=== PATIENT | male | born 1990 | race Caucasian/White ===

== ENCOUNTER 2020-02-21 20:40 | Emergency (ER) | payer OTHER, SELFPAY ==
--- NOTE | ~2020-02-21 | CT_ITS ---
EXAMINATION: CT abdomen pelvis wo con DATE: 02/21/2020 21:17 INDICATION: Left flank pain. TECHNIQUE: Computed tomography (CT) of the abdomen and pelvis was performed without intravenous contr ast. Automated exposure control and iterative reconstruction technique were employed. The dose-length product was 296.52 mGy-cm. COMPARISON: None. FINDINGS: The visualized portions of the lung bases are clear without pneumonia or pleural effusion. The heart size is normal. No pericardial effusion. The liver, gallbladder, spleen, pancreas, adrenal glands, and kidneys are normal. There is mild left hydroureter. There is a 2 mm stone at left uretero vesicular junction. There are no dilated loops of bowel. The appendix is normal. There are no patholo gically enlarged lymph nodes. There is no free intraperitoneal fluid. The bones are unremarkable. IMPRESSION: 1. 2 mm stone at left ureterovesicular junction with mild left hydroureter. Reviewed, dictated and finalized at location A.
[2020-02-21 20:42] VITALS: BP 148/87; PULSE 111; RESP 18; TEMP 35.9; O2SAT 100
[2020-02-21 20:53] LABS: Basophils Absolute Auto 0.1 K/mm3 (0.0-0.1); Basophils Percent Auto 0.5 % (0.2-1.2); Eosinophils Absolute Auto 0.1 K/mm3 (0-0.3); Eosinophils Percent Auto 1.1 % (0-4.4); Hematocrit 45.7 % (42.0-52.0); Hemoglobin 15.9 g/dL (14.0-18.0); Immature Granulocyte Absolute 0.02 K/mm3 (0.00-0.031); Immature Granulocyte Percent A 0.2 % (0-0.5); Lymphocytes Absolute Auto 2.17 K/mm3 (0.9-3.2); Lymphocytes Percent Auto 23.2 % (18.3-44.2); Mean Corpuscular HGB Conc 34.8 g/dl (32-36); Mean Corpuscular Hemoglobin 29.2 pg (26-34); Mean Platelet Volume 9.9 fl (7.4-10.4); Monocytes Absolute Auto 0.7 K/mm3 (0.1-0.6); Monocytes Percent Auto 7.9 % (2.6-8.5); Neutrophils Absolute Auto 6.3 K/mm3 (1.3-6.7); Neutrophils Percent Auto 67.1 % (45.5-73.1); Platelet Count Result 326 k/mm3 (150-375); Red Blood Count 5.44 M/mm3 (4.6-6.20); Red Cell Distribution Width 11.9 % (11.5-14.5); White Blood Count 9.4 K/mm3 (4.5-10.0)
--- NOTE | 2020-02-21 21:02 | ED.ABDPAIN ---
HPI - Abdominal Pain General Chief Complaint: Abdominal Pain Stated Complaint: flank pain Time Seen by Provider: 02/21/20 20:55 Source: patient Mode of arrival: ambulatory Limitations: no limitations History of Present Illness HPI narrative: Patient is a 30-year-old male who presents to the emergency department complaint of left flank pain. Patient reports onset of symptoms approximately an hour ago. Patient locates the pain in the left flank with radiation into the left lower quadrant/groin and left testicle. Patient denies any pain in his back. He denies any hematuria or dysuria, but does report pain started after urinating. He denies any fever, chills, sweats, nausea, or vomiting. He does report prior history of kidney stones and states this feels similar. Last episode of kidney stone was 8 years ago. MD elicited complaint: flank pain Pertinent past history: kidney stones Onset (ago): hour(s) (1) Pain Consistency: constant Location: L flank Radiation: LLQ and other (Left testicle) Associated symptoms: denies other symptoms Treatments prior to arrival: other (None) Related Data Allergies Allergy/AdvReac Type Severity Reaction Status Date / Time No Known Allergies Allergy Unverified 04/19/17 22:04 Review of Systems Review of Systems: All systems reviewed & are unremarkable except as noted in HPI and below Constitutional: Constitutional: Denies chills and Denies fever(s) Gastrointestinal: Gastrointestinal: Reports abdominal pain, Denies nausea and Denies vomiting Genitourinary: Genitourinary: Denies hematuria, Denies dysuria, Reports flank pain and Reports testicular pain PMFSH Past Medical History Medical History (Updated 02/21/20 @ 22:03 by Brigitte Enriquez MD) Kidney stones Surgical History Surgical History (Updated 02/21/20 @ 21:03 by Brigitte Enriquez MD) History of tonsillectomy History of vasectomy Social History Social History (Updated 02/21/20 @ 21:04 by Brigitte Enriquez MD) Smoking status: Former smoker Living arrangements: with family 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[employer] Gender identity (if verbalized by the patient): Male Exam Const: General: cooperative, alert and uncomfortable (Patient stoic, but legs shaking from pain) Nutritional Appearance: well nourished Orientation/consciousness: patient oriented x3 Limitations: no limitations Resp: Effort & Inspection: normal respiratory effort Auscultation: clear to auscultation bilaterally Cardio: Rate: regular rate Rhythm: regular rhythm GI: GI Palp: Yes Soft to palpation and Yes Tenderness to palpation present (GI) (Mild left lower quadrant) Auscultation: normal bowel sounds : General: Yes CVA tenderness on the left Skin: General skin exam: normal color and no rashes or lesions noted Neuro: General: patient oriented x3 Cognition (Neuro): normal cognition Speech: normal speech Extrem: General: normal to inspection, full ROM and no clubbing, cyanosis or edema Psych: Mental Status: mental status grossly normal Affect: normal affect Attitude: cooperative Course Course Emergency Course: Patient with findings of 2 mm stone at the left UVJ. Patient greatly improved after Toradol. Will prescribe Toradol and Flomax and counseled patient on expectant management for small ureteral stone. Patient advised to follow-up with his urologist in [place] or on-call urologist for further care if needed. Vital Signs Vital signs: Vital Signs Temperature 96.7 F L 02/21/20 20:42 Pulse Rate 111 H 02/21/20 20:42 Respiratory Rate 18 02/21/20 20:42 Blood Pressure 148/87 H 02/21/20 20:42 Pulse Oximetry 100 02/21/20 20:42 Temperature 96.7 F L 02/21/20 20:42 Pulse Rate 111 H 02/21/20 20:42 Respiratory Rate 18 02/21/20 20:42 Blood Pressure 148/87 H 02/21/20 20:42 Pulse Oximetry 100 02/21/20 20:42 MDM - Abdominal Pain Lab Data Attestation: I reviewed th
[2020-02-21 21:04] LABS: Blood Urea Nitrogen 17 mg/dL (9-20); Calcium 9.6 mg/dL (8.4-10.2); Carbon Dioxide 26 mmol/L (22-30); Chloride 103 mmol/L (98-107); Estimated Glomerular Filt Rate > 60; Glucose 92 mg/dL (75-110); Potassium 3.8 mmol/L (3.4-5.0); Sodium 140 mmol/L (137-145)
[2020-02-21] MEDS: KETOROLAC 30 MG/ML VIAL (*BKC) IV PUSH (21:23)
[2020-02-21 21:51] LABS: Add Urine Microscopic? YES; Appearance Urine Cloudy (Clear); Bacteria Urine Trace /hpf; Bilirubin Urine Negative (Negative); Blood Urine Negative (Negative); Budding Yeast Urine Present /hpf; Color Urine Yellow (Yellow); Glucose Urine UA Negative (Negative); Ketones Urine Negative (Negative); Leukocyte Esterase Ur Negative LEU/UL (Negative); Mucus Urine Rare /lpf; Nitrate Urine Negative (Negative); Protein Urine Negative (Negative); Specific Grav Ur 1.017 (1.001-1.035); Urobilinogen Urine Negative mg/dL (<2.0); WBC Urine 0-3 /hpf
[2020-02-21] MEDS: TAMSULOSIN HCL 0.4 MG CAPSULE PO (22:09)
[2020-02-21 22:11] VITALS: BP 131/81; PULSE 82; RESP 18; O2SAT 100
== END 2020-02-21 22:12 | disposition home or self-care (01) ==
PROVIDERS: Emergency Provider Emergency Medicine
DX: N13.2 Hydronephrosis with renal and ureteral calculous obstruction (principal); Z87.442 Personal history of urinary calculi; Z87.891 Personal history of nicotine dependence
CPT/HCPCS: 36415; 74176; 80048; 81001; 85025; 96374; 99284; A9270; J1885

== ENCOUNTER 2020-07-03 11:13 | Emergency (ER) | payer OTHER, SELFPAY ==
--- NOTE | 2020-07-03 11:25 | ED.URI ---
HPI - URI/Sore Throat General Chief Complaint: Upper Respiratory Infection Stated Complaint: sore throat/sinus pressure Time Seen by Provider: 07/03/20 11:25 Source: patient History of Present Illness HPI Narrative: Patient presents with a sore throat for the past 4 days. Patient also reports sinus drainage and pressure. Patient states he is taking Filomena during the day and Zyrtec at night but still wakes up with a moderate amount of drainage every morning. Patient denies any cough no shortness of breath no body aches no fatigue no loss of taste or smell patient denies any COVID-19 exposure. Patient states he was sent home from work today due to his sore throat. Patient states he is eating and drinking but it hurts to swallow. No trouble swallowing and no drooling. Related Data Home Medications Medication Instructions Recorded Confirmed No Home Medications 07/03/20 07/03/20 Allergies Allergy/AdvReac Type Severity Reaction Status Date / Time No Known Allergies Allergy Verified 07/03/20 11:24 Review of Systems Review of Systems: Narrative: CONSTITUTIONAL: Denies fever, chills, or sweats. EYES: Denies visual changes, redness, or discharge. ENT: Denies rhinorrhea, congestion, or otalgia. Patient reports sore throat and facial tenderness CARDIOVASCULAR: Denies chest pain, palpitations, or edema. RESPIRATORY: Denies cough or dyspnea. GASTROINTESTINAL: Denies abdominal pain, nausea, vomiting, or diarrhea. GENITOURINARY: Denies dysuria or hematuria. SKIN: Denies rash or itching. MUSCULOSKELETAL: Denies back pain, joint pain, or myalgia. NEUROLOGIC: Denies headache, numbness, or weakness. PSYCHIATRIC: Denies anxiety or depression. 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 There is no relevant family history pertinent to the presenting complaint Exam Narrative: Exam Narrative: GENERAL: Well-appearing, well-nourished, and in no acute distress. HEAD: Normocephalic, atraumatic. EYES: PERRLA and EOMI. ENT: Nares clear, no rhinorrhea or epistaxis. Mucous membranes moist. Bilateral TM dullness, mild postnasal drainage moderate pharyngeal erythremia, no trismus able to open mouth fully NECK: Supple. CHEST: Clear to auscultation. No respiratory distress. HEART: Regular rate and rhythm. No murmur heard. Normal peripheral pulses. ABDOMEN: Soft, nontender, nondistended, normal active bowel sounds. EXTREMITIES: Normal range of motion. No edema. SKIN: Warm, dry, no rash. NEURO: No focal deficits. Alert and oriented x3. [place] Coma Scale Eye Opening: Spontaneous 4 [place] Coma Scale Motor: Obeys Commands 6 [place] Coma Scale Verbal: Oriented 5 [place] Coma Scale Total 15 MDM - URI/Sore Throat Differential Diagnosis Differential diagnosis: Likely upper respiratory infection, croup, otitis media, sinusitis, viral infection, bronchitis, influenza and pharyngitis Critical Care Time Critical Care Time Critical Care Time: No Discharge Plan Discharge Clinical Impression: Pharyngitis, Sinusitis Patient Disposition: Home, Self-Care Condition: Stable Instructions: Antibiotic Form, Pharyngitis (ED), Sinusitis (ED) Additional Instructions: 1. Please take your antibiotic until it is completely gone as directed 2. 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 You can return to work or school after 24 hours of antibiotic treatment and when feve
[2020-07-03 11:31] VITALS: BP 133/75; PULSE 83; RESP 20; TEMP 36.6; O2SAT 100
== END 2020-07-03 11:34 | disposition home or self-care (01) ==
PROVIDERS: Emergency Provider Nurse Practitioner Family
DX: J32.9 Chronic sinusitis, unspecified (principal); J02.9 Acute pharyngitis, unspecified
CPT/HCPCS: 87081; 87880; 99213; G0463

== ENCOUNTER 2021-12-12 10:03 | Emergency (ER) | payer OTHER, SELFPAY ==
--- NOTE | 2021-12-12 10:08 | ED.GENADULT ---
HPI - General Adult General Chief complaint: Upper Respiratory Infection Stated complaint: Sore Throat,Cough Time Seen by Provider: 12/12/21 10:08 Source: patient and RN notes reviewed Mode of arrival: ambulatory Limitations: no limitations History of Present Illness HPI narrative: 31-year-old male presented for complaint of sore throat, body aches, cough onset 2 days ago. He endorses 3 coworkers out positive for flu. He has had a Covid and flu vaccinations. He denies sinus pressure/congestion, chest pain, shortness of breath, wheezing, nausea, vomiting, diarrhea, fever or chills. Taking Tylenol and Mucinex helps symptoms. Denies significant medical history. Related Data Home Medications Medication Instructions Recorded Confirmed No Home Medications 07/03/20 07/03/20 Allergies Allergy/AdvReac Type Severity Reaction Status Date / Time No Known Allergies Allergy Verified 12/12/21 10:16 Review of Systems Review of Systems: CONSTITUTIONAL: Denies malaise, chills, sweats, fever EYES: Denies visual changes, redness, or discharge ENT: Endorses sore throat denies rhinorrhea, congestion, sinus pain, otalgia CARDIOVASCULAR: Denies chest pain, palpitations, edema RESPIRATORY: Reports cough denies dyspnea GASTROINTESTINAL: Denies abdominal pain, nausea, vomiting, diarrhea SKIN: Denies rash or itching MUSCULOSKELETAL: Endorses myalgia NEUROLOGIC: Denies headache PMFSH Past Medical History Medical History Kidney stones Surgical History Surgical History History of tonsillectomy History of vasectomy Social History Social History Smoking status: Former smoker 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 HEAD: Normocephalic EYES: PERRLA, conjunctivae clear ENT: Mucous membranes moist. TM pearly nunes with dull light reflex bilaterally; no tragal tenderness. Oropharynx erythematous without lesions or exudate, no drooling, no hoarseness, no trismus, uvula midline. NECK: Supple. No lymphadenopathy CHEST: Clear to auscultation, breath sounds equal. No wheezing, rhonchi, rales, or stridor. No respiratory distress, speaks in full sentences. HEART: Regular rate and rhythm. No murmur heard. SKIN: Warm, dry, no rash. NEURO: Alert and oriented x3. PSYCH: Normal mood and affect Course Course Emergency Course: Patient is aware of diagnosis, understands and agrees to treatment plan. Anticipatory guidance given. Patient agrees to follow-up as directed and is aware of reasons to seek care at the emergency department. Portions of this record may have been created with voice recognition software Level of Care: Express Care Visit Vital Signs Vital signs: Vital Signs Temperature 97.8 F 12/12/21 10:10 Pulse Rate 90 12/12/21 10:10 Respiratory Rate 12/12/21 10:10 Blood Pressure 142/88 H 12/12/21 10:10 Pulse Oximetry 100 12/12/21 10:10 Temperature 97.8 F 12/12/21 10:10 Pulse Rate 90 12/12/21 10:10 Respiratory Rate 12/12/21 10:10 Blood Pressure 142/88 H 12/12/21 10:10 Pulse Oximetry 100 12/12/21 10:10 reviewed Medical Decision Making Differential Diagnosis Differential Diagnosis: influenza, covid, sinusitis, OM, strep pharyngitis, URI Vital Signs Vital Signs: Vital Signs Temperature 97.8 F 12/12/21 10:10 Pulse Rate 90 12/12/21 10:10 Respiratory Rate 12/12/21 10:10 Blood Pressure 142/88 H 12/12/21 10:10 Pulse Oximetry 100 12/12/21 10:10 Temperature 97.8 F 12/12/21 10:10 Pulse Rate 90 12/12/21 10:10 Respiratory Rate 20 12/12/21 10:10 Blood Pressure 142/88 H 12/12/21 10:10 Pulse Oximetry 100 12/12/21 10:10 Lab Data
[2021-12-12 10:10] VITALS: BP 142/88; PULSE 90; RESP 20; TEMP 36.6; O2SAT 100
== END 2021-12-12 10:46 | disposition home or self-care (01) ==
PROVIDERS: Emergency Provider Nurse Practitioner Family
DX: J06.9 Acute upper respiratory infection, unspecified (principal); Z20.822 Contact with and (suspected) exposure to COVID-19; Z98.52 Vasectomy status
CPT/HCPCS: 87426; 87804; 99213; C9803; G0463

== ENCOUNTER 2022-08-28 22:08 | Emergency (ER) | payer OTHER, SELFPAY ==
--- NOTE | ~2022-08-28 | XR_ITS ---
EXAM: XR finger 1st LT min 2V DATE: 08/28/2022 22:32 HISTORY: injury, INJURED IT PULLING A CROSSBOW. . COMPARISON: None available. FINDINGS: Normal mineralization. No fracture or dislocation. No lytic or blastic lesion. Joint space s are maintained. No erosion or periosteal change. Soft tissues within normal limits. IMPRESSION: No acute osseous finding in the left thumb. Reviewed, dictated and finalized at location K. 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
[2022-08-28 22:19] VITALS: BP 150/86; PULSE 90; RESP 16; TEMP 37.3; O2SAT 100
--- NOTE | 2022-08-28 23:44 | ED.UPPEXIN ---
HPI - Extremity Injury (Upper) General Chief Complaint: Extremity Injury, Upper Stated Complaint: left thumb injury Time Seen by Provider: 08/28/22 23:38 History of Present Illness HPI narrative: Patient is a 32-year-old male who presents ER with pain to his left thumb. He was loading a crossbow when it went off catching his thumb. He had sudden onset pain. He developed swelling. He has abrasions to the distal phalanx and some small cracks in his distal thumbnail. Tetanus up-to-date. No numbness or tingling. Reports she has been icing it and taking ibuprofen and swelling is gone down. No additional concerns or injury. Patient plans on hunting tomorrow morning and wanted to make sure his thumb was not broken. Related Data Home Medications Medication Instructions Recorded Confirmed No Home Medications 07/03/20 12/12/21 Allergies Allergy/AdvReac Type Severity Reaction Status Date / Time No Known Allergies Allergy Verified 08/28/22 22:18 Review of Systems Constitutional: Constitutional: Denies chills Musculoskeletal: Musculoskeletal: Reports arthralgias and Reports joint swelling Integumentary/Breasts: Skin/Breast: Denies erythema and Denies skin ulcer Comments: Finger abrasion Neurologic: Denies numbness PMFSH Past Medical History Medical History Kidney stones Surgical History Surgical History History of tonsillectomy History of vasectomy Social History Social History Smoking status: Former smoker 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 HEAD: Normocephalic, atraumatic. EXTREMITIES: Focused exam right thumb reveals normal flexion extension when isolating the DIP and MCP. Superficial abrasions with 2 linear cracks of the distal aspect of the thumbnail with residual blood. Sensation intact. Normal capillary refill. SKIN: Warm, dry, no rash. NEURO: Alert and oriented x3. PSYCH: Normal mood and affect. Course Course Emergency Course: Discussed results. Discharge home. Vital Signs Vital signs: Vital Signs Temperature 99.2 F 08/28/22 22:19 Pulse Rate 90 08/28/22 22:19 Respiratory Rate 16 08/28/22 22:19 Blood Pressure 150/86 H 08/28/22 22:19 Pulse Oximetry 100 08/28/22 22:19 Oxygen Delivery Room Air 08/28/22 22:19 Temperature 99.2 F 08/28/22 22:19 Pulse Rate 90 08/28/22 22:19 Respiratory Rate 16 08/28/22 22:19 Blood Pressure 150/86 H 08/28/22 22:19 Pulse Oximetry 100 08/28/22 22:19 Oxygen Delivery Room Air 08/28/22 22:19 MDM - Extremity Injury (Upper) Imaging Data Radiologist's impression: ITS Impressions Finger X-Ray 08/28/22 22:43 IMPRESSION: No acute osseous finding in the left thumb. Discharge Plan Discharge Clinical Impression: Left thumb sprain, Abrasion of left thumb Patient Disposition: Home, Self-Care Condition: Stable Additional Instructions: Return the ER if you suffer new injury, you have new numbness or tingling, or you have additional concerns. Take ibuprofen and Tylenol as needed for pain at home. Prescriptions: No Action No Home Medications Follow-up/Referrals: [facility] [facility], [Primary Care Provider] - 1 Week
[2022-08-28 23:50] VITALS: PULSE 88; RESP 16; O2SAT 96
== END 2022-08-28 23:51 | disposition home or self-care (01) ==
PROVIDERS: Emergency Provider Emergency Medicine
DX: S63.602A Unspecified sprain of left thumb, initial encounter (principal); S60.312A Abrasion of left thumb, initial encounter; Y29.XXXA Contact with blunt object, undetermined intent, initial encounter
CPT/HCPCS: 73140; 99283

== ENCOUNTER 2022-11-21 07:26 | Outpatient (CLI) | payer OTHER, SELFPAY ==
[2022-11-29 11:50] LABS: Testosterone Free 125.6 pg/mL (35.0-155.0); Testosterone Total 483 ng/dL (250-1100)
== END 2022-11-21 07:27 | disposition home or self-care (01) ==
PROVIDERS: Visit Provider Nurse Practitioner Family
DX: R53.83 Other fatigue (principal)
CPT/HCPCS: 36415; 82607; 84402; 84403; 84443

== ENCOUNTER 2022-12-17 08:12 | Outpatient (CLI) | payer OTHER, SELFPAY ==
--- NOTE | 2023-01-06 21:48 | WPDHOMESLEEP ---
Sleep Study - Home Unattended Date of Study: 12/17/22 Ordering Provider: Minor Mireles APRN Interpreting Provider: Ebony Waldrop, DO Home Sleep Study Type: Apnea Link Air Height: 1.75 m Weight: 103.873 kg Body Mass Index: 33.7 Neck Circumference (inches): 16.25 Donner: 17 Reason for Sleep Study Daytime hypersomnia Sleep History The patient is a 33-year-old male with no major medical issues that had a sleep study ordered by the Pulmonary group for evaluation of sleep apnea. The patient occasionally awakens from sleep short of breath. He occasionally awakens at night with heartburn, belching or cough. He constantly snores loudly enough that others complain. He frequently has trouble sleeping when he has a cold. He occasionally wakes up gasping for air throughout the night. He frequently has breathing problems at night observed by himself or others. He rarely sweats excessively at night. He rarely has heart palpitations or irregular heartbeats during the night. He frequently falls asleep during the day but never while driving. He denies sleep paralysis, cataplexy and hypnagogic / hypnopompic hallucinations. He frequently has trouble at school or work due to sleepiness. He denies feeling afraid of going to sleep. He rarely has nightmares. He rarely remembers his dreams. He occasionally has thoughts racing through his mind. He rarely feels sad or depressed. He occasionally has anxiety. He rarely has muscular tension. He rarely notices parts of his body jerk. He rarely kicks during the night. He denies having crawling and aching feelings in his legs as well as leg pain during the night. He denies grinding his teeth during sleep and denies awakening with morning jaw pain. He is rarely bothered by pain during the day and rarely awakened by pain during the night. He frequently wakes up feeling stiff in the morning. He frequently wakes up with sore or achy muscles. He occasionally wakes up with pain in the neck, spine or other joints. He goes to bed at 9:00 p.m. on both weekdays and weekends. He takes him 10 minutes to fall asleep. He wakes up 5-7 times throughout the night for unknown reasons. He is able to fall back asleep within 3-5 minutes. He wakes up at 4:45 a.m. on weekdays and between 8-9:30 a.m. on the weekends. He typically gets 5 hours of sleep per night. He will stay in bed for 10 minutes after waking up in morning. He currently lives with his and kids. He does not consume any caffeinated beverages within 2 hours of bedtime. He does not engage in physical exercise before bedtime. He will read before falling asleep. He will take naps in the afternoon or the evening but they are not refreshing. He consumes 900 mg of caffeine per day. He consumes 3-4 alcoholic beverages per week. He denies tobacco and recreational drug use. 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
[2023-01-06 21:51] VITALS: BMI 33.7
== END 2022-12-18 10:48 | disposition home or self-care (01) ==
LOC: ANHCSM 08:24
PROVIDERS: Visit Provider Nurse Practitioner Family
DX: G47.33 Obstructive sleep apnea (adult) (pediatric) (principal); G47.10 Hypersomnia, unspecified; Z87.891 Personal history of nicotine dependence
CPT/HCPCS: 95806

== ENCOUNTER 2022-12-28 08:56 | Outpatient (CLI) | payer OTHER, SELFPAY ==
[2022-12-28 09:43] LABS: Free T4 Free Thyroxine 0.88 ng/mL (0.78-2.19)
== END 2022-12-28 08:57 | disposition home or self-care (01) ==
PROVIDERS: Visit Provider Nurse Practitioner Family
DX: R53.83 Other fatigue (principal)
CPT/HCPCS: 36415; 84439; 84443

== ENCOUNTER 2023-01-07 17:42 | Emergency (ER) | payer OTHER, SELFPAY ==
[2023-01-07 18:54] VITALS: BP 132/81; PULSE 100; RESP 16; TEMP 36.7; O2SAT 100
--- NOTE | 2023-01-07 19:34 | ED.URI ---
HPI - URI/Sore Throat General Chief Complaint: Upper Respiratory Infection Stated Complaint: Cough Source: patient Mode of arrival: ambulatory Limitations: no limitations History of Present Illness HPI Narrative: 33-year-old male presents to [facility] Care complains of productive cough for the past 2 days. Patient has been taking [id number] Mucinex with minimal relief. Patient denies shortness of breath, wheezing, fever, body aches, chills, runny nose or nasal congestion. Patient reports that strep throat is going through his home but he does not want to be tested tonight as he does not think he has it. Patient is a nonsmoker. Patient denies recent trauma. MD elicited complaint: cough Onset (ago): day(s) (2) Consistency: intermittent Able to tolerate fluids by mouth: Yes Context: sick contacts Treatments prior to arrival: cold medicine Related Data Allergies Allergy/AdvReac Type Severity Reaction Status Date / Time No Known Allergies Allergy Verified 01/07/23 18:56 Review of Systems Constitutional: Constitutional: Denies chills, Denies fatigue, Denies fever(s) and Denies weakness ENT: Denies dizziness, Denies epistaxis and Denies nasal congestion Cardiovascular: Cardiovascular: Denies chest pain Respiratory: Respiratory: Denies chest congestion, Reports cough, Denies dyspnea and Denies wheezing Gastrointestinal: Gastrointestinal: Denies diarrhea, Denies nausea and Denies vomiting Integumentary/Breasts: Skin/Breast: Denies rash Neurologic: Denies dizziness, Denies syncope and Denies headache(s) [facility] Past Medical History Medical History Kidney stones Surgical History Surgical History History of tonsillectomy History of vasectomy Social History Social History Smoking packs per day: 0.5 Smoking cigarettes per day: 10.0 Years smoked: 2 Smoking pack-years: 1.00 Smoking status: Former smoker Tobacco type: cigarettes Smoking end date: 10/21/12 Alcohol intake: current Drinks per week: 2 Alcohol use details: Social Substance use: never Living arrangements: with family Occupation/Education: occupation 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 There is no relevant family history pertinent to the presenting complaint. Exam Const: General: healthy appearing and no acute distress Nutritional Appearance: well nourished Orientation/consciousness: patient oriented x3 Limitations: no limitations HENMT: Head: normal to inspection Ears: external ears normal, TM's normal bilaterally and EAC's normal Face/Nose/Sinus: Normal external nose present Face and sinus: normal facial exam Throat: posterior oropharynx normal and uvula midline Eyes: Conjunctivae: conjunctivae normal Neck: Neck: normal visual inspection Resp: Effort & Inspection: normal respiratory effort and not labored Auscultation: clear to auscultation bilaterally, no crackles, no rales, no rhonchi and no wheezes Cardio: Rate: regular rate Rhythm: regular rhythm Heart sounds: no murmurs Skin: General skin exam: normal color Rashes: no rashes Neuro: General: patient oriented x3 Speech: normal speech Psych: Affect: normal affect Attitude: cooperative Course Course Level of Care: Express Care Visit Vital Signs Vital signs: Vital Signs Temperature 36.7 C 01/07/23 18:54 Pulse Rate 100 01/07/23 18:54 Respiratory Rate 16 01/07/23 18:54 Blood Pressure 132/81 01/07/23 18:54 Pulse Oximetry 100 01/07/23 18:54 Oxygen Delivery Room Air 01/07/23 18:54 Temperature 36.7 C 01/07/23 18:54 Pulse Rate 100 01/07/23 18:54 Respiratory R
== END 2023-01-07 19:48 | disposition home or self-care (01) ==
PROVIDERS: Emergency Provider Nurse Practitioner Family
DX: J06.9 Acute upper respiratory infection, unspecified (principal); Z87.891 Personal history of nicotine dependence
CPT/HCPCS: 99213; G0463

== ENCOUNTER 2023-06-18 16:01 | Emergency (ER) | payer OTHER, SELFPAY | END 2023-06-18 16:30 | disposition left against medical advice (07) | PROVIDERS: Emergency Provider Nurse Practitioner Family | DX: Z53.21 Procedure and treatment not carried out due to patient leaving prior to being seen by health care provider (principal) | CPT/HCPCS: 99199 ==

== ENCOUNTER 2023-09-20 17:20 | Emergency (ER) | payer OTHER, SELFPAY ==
[2023-09-20 17:30] VITALS: BP 139/82; PULSE 92; RESP 18; TEMP 35.9; O2SAT 100
--- NOTE | 2023-09-20 17:31 | ED.GENADULT ---
HPI - General Adult General Chief complaint: Upper Respiratory Infection Stated complaint: Sore Throat Source: patient, RN notes reviewed and old records reviewed Mode of arrival: ambulatory Limitations: no limitations History of Present Illness HPI narrative: 33-year-old male presents to [facility] with complaint of sore throat that started around noon yesterday. Patient states has slight congestion, but states that is his norm. Patient has not taken anything. Patient denies cough, fevers, myalgia, nausea vomiting. MD complaint: sore throat Onset (ago): day(s) (1) Radiation: non-radiation Related Data Home Medications Medication Instructions Recorded Confirmed No Home Medications 09/20/23 09/20/23 Allergies Allergy/AdvReac Type Severity Reaction Status Date / Time No Known Allergies Allergy Verified 09/20/23 17:24 Review of Systems Constitutional: Constitutional: Reports no additional constitutional complaints Eyes: Eyes: Reports no additional eye complaints ENT: Reports sore throat Cardiovascular: Cardiovascular: Reports no additional cardiovascular complaints Respiratory: Respiratory: Reports no additional respiratory complaints Neurologic: Reports system reviewed and no additional complaints, except as documented PMFSH Past Medical History Medical History Kidney stones Surgical History Surgical History History of tonsillectomy History of vasectomy Social History Social History Smoking packs per day: 0.5 Smoking cigarettes per day: 10.0 Years smoked: 2 Smoking pack-years: 1.00 Smoking status: Former smoker Tobacco type: cigarettes Smoking end date: 10/21/12 Alcohol intake: current Drinks per week: 2 Alcohol use details: Social Substance use: never Living arrangements: with family Occupation/Education: occupation 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 There is no relevant family history pertinent to the patient complaint. Exam Const: General: cooperative, healthy appearing, no acute distress and well nourished Nutritional Appearance: well nourished Orientation/consciousness: patient oriented x3 Limitations: no limitations HENMT: Head: normal to inspection and normocephalic Ears: external ears normal, TM's normal bilaterally, mastoids normal and Abnormal EAC present Face/Nose/Sinus: normal facial exam Face and sinus: normal facial exam Mouth: Yes Normal oral and palatal mucosa present, Yes oropharynx normal and Yes moist mucous membranes Throat: posterior oropharynx normal, tonsils normal, uvula midline and no uvular edema Eyes: General: appearance normal, both eyes and all related structures Sclera: sclerae normal Pupils: Equal, round and reactive pupils present Resp: Effort & Inspection: normal respiratory effort, able to speak in complete sentences, no cough, no respiratory distress and no retractions Cardio: Rate: regular rate Skin: General skin exam: normal color and no rashes or lesions noted Neuro: General: patient oriented x3 Cranial nerves: Yes Equal, round and reactive pupils present Psych: Appearance: grossly normal Course Course Emergency Course: Some parts of this dictation were generated by voice recognition software and may contain typographical and/or grammatical inaccuracies. Level of Care: Express Care Visit Vital Signs Vital signs: Vital Signs Temperature 96.7 F L 09/20/23 17:30 Pulse Rate 92 09/20/23 17:30 Respiratory Rate 18 09/20/23 17:30 Blood Pressure 139/82 09/20/23 17:30 Pulse Oximetry 100 09/20/23 17:30
== END 2023-09-20 17:38 | disposition home or self-care (01) ==
PROVIDERS: Emergency Provider Registered Nurse
DX: J02.9 Acute pharyngitis, unspecified (principal); Z87.891 Personal history of nicotine dependence
CPT/HCPCS: 87081; 87880; 99213; G0463

== ENCOUNTER 2023-09-25 12:00 | Emergency (ER) | payer OTHER, SELFPAY ==
[2023-09-25 12:00] VITALS: BP 146/93; PULSE 114; RESP 16; TEMP 36.9; O2SAT 100
--- NOTE | 2023-09-25 12:24 | ED.EAR ---
HPI - Ear Problem General Chief complaint: Ear Stated complaint: SORE THROAT/EARACHE Time Seen by Provider: 09/25/23 12:24 Source: patient, RN notes reviewed and old records reviewed Mode of arrival: ambulatory Limitations: no limitations History of Present Illness HPI Narrative: 33-year-old male presents to [facility] with complaints of sore throat and ear aches today with sinus congestion and drainage. Patient states he has not been able to eat anything but liquids,soups, and puddings because his throat is so sore. 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 Patient was seen in the [facility] on the of and tested negative for strep, has had tonsillectomy. Patient reports that he has been taking DayQuil and NyQuil and daily Zyrtec for his symptoms. MD Complaint: ear pain and other (sore throat ,sinus drainage.) Location: bilateral Discharge from ear: Reports no Treatment prior to arrival: other (DayQuil NyQuil and Zyrtec) Related Data Allergies Allergy/AdvReac Type Severity Reaction Status Date / Time No Known Allergies Allergy Verified 09/20/23 17:24 Review of Systems Review of Systems: CONSTITUTIONAL: Denies malaise, chills, sweats, or fever. EYES: Denies visual changes, redness, or discharge. ENT: Reports rhinorrhea, congestion, sinus pain, otalgia and sore throat. CARDIOVASCULAR: Denies chest pain, palpitations, or edema. RESPIRATORY: Reports cough.? Denies dyspnea. GASTROINTESTINAL: Denies abdominal pain, nausea, vomiting, diarrhea SKIN: Denies rash or itching. MUSCULOSKELETAL: Denies myalgia. NEUROLOGIC: Denies headache. All systems reviewed & are unremarkable except as noted in HPI and below [facility] Past Medical History Medical History (Updated 09/26/23 @ 09:58 by Jessica Flower NP) History of sinus problem Kidney stones Sleep apnea Surgical History Surgical History History of tonsillectomy History of vasectomy Social History Social History Smoking packs per day: 0.5 Smoking cigarettes per day: 10.0 Years smoked: 2 Smoking pack-years: 1.00 Smoking status: Former smoker Tobacco type: cigarettes Smoking end date: 10/21/12 Alcohol intake: current Drinks per week: 2 Alcohol use details: Social Substance use: never Living arrangements: with family Occupation/Education: occupation 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 There is no relevant family history pertinent to the presenting complaint Exam Narrative: GENERAL: Well-appearing, well-nourished, and in no acute distress. HEAD: Normocephalic EYES: PERRLA, conjunctivae clear ENT: Nares clear, turbinates edematous and erythematous, clear to light yellow discharge.sinus pressure. Mucous membranes moist. TM pearly nunes with dull light reflex bilaterally; no tragal tenderness. Oropharynx erythematous without lesions. Tonsils not present and throat without exudate, no drooling, no hoarseness, no trismus, uvula midline.post sinus drainage NECK: Supple. No lymphadenopathy CHEST: Clear to auscultation, breath sounds equal. No wheezing, rhonchi, rales, or stridor. No respiratory distress, speaks in full sentences.occasional dry cough noted SAO2 100% on room air HEART: Regular rate and rhythm. No murmur heard. SKIN: Warm, dry, no rash. NEURO: Alert and oriented x3. PSYCH: Normal mood and affect Course Course Emergency Course: Patient is aware of diagnosis, understands and agrees to treatment plan.? Anticipatory guidance given.? Patient agrees to follow-up as directed and is aware of reasons to seek care at the emergency
== END 2023-09-25 12:54 | disposition home or self-care (01) ==
PROVIDERS: Emergency Provider Registered Nurse
DX: J32.9 Chronic sinusitis, unspecified (principal); J02.9 Acute pharyngitis, unspecified; Z87.891 Personal history of nicotine dependence; Z98.52 Vasectomy status
CPT/HCPCS: 99213; G0463